=== PATIENT | female | born 1965 | race Asian ===

== ENCOUNTER 2021-06-01 08:51 | Emergency (ER) | payer SELFPAY ==
[~2021-06-01] VITALS: Ht 149.9 cm; Wt 56.5 kg
--- NOTE | 2021-06-01 09:10 | PHYS DOC ---
Adult General Chief Complaint Chief Complaint: CHEST PAIN [facility] HPI Patient is a 55 year old female who presents with chest pain. Patient complains of pain over the left pectoralis area. She has been having symptoms over the last 2 days. Pain started slowly. She did not have any accident, strenuous activity that would have led to her symptoms. Pain has been intermittent but worse with deep inspiration and worse with use of the left arm. No prior cardiac history. No shortness of breath, palpitations, lightheade dness. No fever, chills, cough. Eating and drinking normally. Review of Systems Review of Systems Constitutional: Denies fever or chills Eyes: Denies change in visual acuity, redness, or eye pain HENT: Denies nasal congestion or sore throat Respiratory: Denies cough or shortness of breath Cardiovascular: No additional information not addressed in HPI GI: Denies abdominal pain, nausea, vomiting, bloody stools or diarrhea : Denies dysuria or hematuria Musculoskeletal: Denies back pain or joint pain Integument: Denies rash or skin lesions Neurologic: Denies headache, focal weakness or sensory changes Endocrine: Denies polyuria or polydipsia All other systems were reviewed and found to be within normal limits, except as documented in this note. Current Medications Current Medications Current Medications Medications (Trade) Dose Ordered Sig/[facility] Start Time Stop Time Status Last Admin Dose Admin Ketorolac Tromethamine (Toradol 30mg Vial) 30 mg 1X ONCE 06/01/21 09:30 06/01/21 09:37 DC 06/01/21 09:45 30 MG Morphine Sulfate (Morphine Sulfate) 4 mg 1X ONCE 06/01/21 10:15 06/01/21 10:16 DC 06/01/21 10:46 4 MG Allergies Allergies Allergies Coded Allergies Type Severity Reaction Last Updated Verified No Known Drug Allergies 06/01/21 No Physical Exam Physical Exam Constitutional: Well developed, well nourished, no acute distress, non-toxic appearance. HENT: Normocephalic, atraumatic, bilateral external ears normal, oropharynx moist Eyes: PERRLA, EOMI, conjunctiva normal, no discharge. Neck: Normal range of motion, no tenderness Cardiovascular:Heart rate regular rhythm, no murmur Lungs & Thorax: Bilateral breath sounds clear to auscultation Abdomen: Bowel sounds normal, soft, no tenderness Skin: Warm, dry, no erythema, no rash. Back: Normal ROM Extremities: No tenderness, no edema Neurologic: Alert and oriented X 3, normal motor function Psychologic: Affect normal Current Patient Data Vital Signs Vital Signs Date Time Temp Pulse Resp B/P (MAP) Pulse Ox O2 Delivery O2 Flow Rate FiO2 06/01/21 10:46 16 100 Room Air 06/01/21 10:10 98.2 68 139/79 (99) 98.2 Lab Values Laboratory Tests Test 06/01/21 09:45 White Blood Count 9.0 x10^3/uL (4.0-11.0) Red Blood Count 5.57 x10^6/uL (3.50-5.40) H Hemoglobin 10.9 g/dL (12.0-15.5) L Hematocrit 35.6 % (36.0-47.0) L Mean Corpuscular Volume 64 fL (79-100) L Mean Corpuscular Hemoglobin 20 pg (25-35) L Mean Corpuscular Hemoglobin Concent 31 g/dL (31-37) Red Cell Distribution Width 15.9 % (11.5-14.5) H Platelet Count 221 x10^3/uL (140-400) Neutrophils (%) (Auto) 44 % (31-73) Lymphocytes (%) (Auto) 44 % (24-48) Monocytes (%) (Auto) 7 % (0-9) Eosinophils (%) (Auto) 4 % (0-3) H Basophils (%) (Auto) 1 % (0-3) Neutrophils # (Auto) 4.0 x10^3/uL (1.8-7.7) Lymphocytes # (Auto) 4.0 x10^3/uL (1.0-4.8) Monocytes # (Auto) 0.6 x10^3/uL (0.0-1.1) Eosinophils # (Auto) 0.4 x10^3/uL (0.0-0.7) Basophils # (Auto) 0.1 x10^3/uL (0.0-0.2) Platelet Estimate Pending D-Dimer (Leslie) < 0.27 ug/mlFEU Sodium Level 142 mmol/L (136-145) Potassium Level 4.3 mmol/L (3.5-5.1) Chloride Level 106 mmol/L (98-107) Carbon Dioxide Level 28 mmol/L (21-32) Anion Gap 8 (6-14) Blood Urea Nitrogen 22 mg/dL (7-20) H Creatinine 0.8 mg/dL (0.6-1.0) Estimated GFR (Cockcroft-Gault) 74.7 Glucose Level 173 mg/dL (70-99) H Calcium Level 8.6 mg/dL (8.5-10.1) Troponin I High Sensitivity 5 ng/L (4-50) [id number] Natriuretic Peptide 23 pg/mL (0-124) Laboratory Tests 06/01/21 09:45 Laboratory Tests 06/01/21 09:45 EKG EKG 09:10: Normal sinus rhythm. Heart rate 65 bpm. Normal intervals. No ST changes to suggest ischemia Radiology/Procedures Radiology/Procedures [] Course & Med Decision Making Course & Med Decision Making Pertinent Labs and Imaging studies reviewed. (See chart for details) Ms. Keys is examined on arrival to her room. CP over the last two days. Pain is worse with resisted activation of the left pectoralis muscle and with palpation in th esame area. No acute distress and she is otherwise normal appearing. Standard workup is ordered. EKG is normal. 11:15: All results are reviewed and discussed with the patient. All of her questions were answered. Her daughter is at the bedside who is acting as science interpreter during this visit. Today, no acute findings are present. Troponin is not elevated. She has been pain for over 2 days. D-dimer is normal. Chest x-ray normal. Her pain seems very musculoskeletal in nature. She was given Toradol in ER along with a small dose of morphine and her pain is improved at the time of discharge. Stable for discharge home and she is given ibuprofen to use as needed for pain control at home. I recommend she follow-up with her primary care doctor or come back to the ER for any new or severely worsening symptoms. Dragon Disclaimer Dragon Disclaimer This electronic medical record was generated, in whole or in part, using a voice recognition dictation system. Departure Departure Impression: Primary Impression: Other chest pain Disposition: HOME / SELF CARE / HOMELESS Condition: GOOD Referrals: INGRID GUERRERO MD (PCP) Patient Instructions: Chest Pain (Nonspecific) Scripts Ibuprofen (IBUPROFEN) 800 Mg Tablet 800 MG PO PRN TID PRN for PAIN, #20 TAB take with food or milk to avoid upsetting stomach Prov: NIGRID LORENZO DO 06/01/21 INGRID LORENZO DO Jun 01, 2021 09:10
[2021-06-01] MEDS ORDERED: KETOROLAC 30 MG/ML VIAL. IVP ONE (09:30)
--- NOTE | 2021-06-01 09:39 | RAD ---
EXAMINATION: Chest radiograph. VIEWS: Single AP view of the chest COMPARISON: None INDICATION:55 years, Female, chest pain. FINDINGS: Normal cardiomediastinal silhouette. No focal consolidation. No pleural effusion or pneumothorax. No acute osseous process. IMPRESSION: No acute cardiopulmonary process. Electronically signed by: Froy Moore DO (06/01/2021 9:36 AM) [facility]
[2021-06-01 10:09] LABS: BASO # 0.1 x10^3/uL (0.0-0.2); BASO % 1 % (0-3); EOS # 0.4 x10^3/uL (0.0-0.7); EOS % 4 % (0-3); HEMATOCRIT 35.6 % (36.0-47.0); HEMOGLOBIN 10.9 g/dL (12.0-15.5); LYMPH % 44 % (24-48); MEAN CORPUSCULAR HEMOGLOBIN 20 pg (25-35); MEAN CORPUSCULAR HGB CONC 31 g/dL (31-37); MEAN CORPUSCULAR VOLUME 64 fL (79-100); MONO # 0.6 x10^3/uL (0.0-1.1); MONO % 7 % (0-9); NEUT % 44 % (31-73); PLATELET COUNT 221 x10^3/uL (140-400); RED BLOOD COUNT 5.57 x10^6/uL (3.50-5.40); RED CELL DISTRIBUTION WIDTH 15.9 % (11.5-14.5)
[2021-06-01] MEDS ORDERED: MORPHINE SULFATE 4 MG/ML INJ. IV ONE (10:15)
[2021-06-01 10:20] LABS: CALCIUM 8.6 mg/dL (8.5-10.1); CREATININE 0.8 mg/dL (0.6-1.0); GFR 74.7; POTASSIUM 4.3 mmol/L (3.5-5.1)
[2021-06-01] MEDS ORDERED: IBUP-1060 PO (11:14)
[2021-06-01 11:27] VITALS: BP 148/71
[2021-06-01 12:32] LABS: ANISOCYTOSIS PRESENT; HYPOCHROMIA MARKED; MICROCYTOSIS MARKED; PLT ESTIMATE ADEQUATE (ADEQUATE)
--- NOTE | 2021-06-02 03:44 | EKG ---
[facility] [address] [place] [address] Test Date: 2021-06-01 Test Time: 09:09:36 Pat Name: ALKA LAURENT Department: Room: Gender: F Ict Customer Support Officer: : 1965 Requested By: INGRID LORENZO Order Number: [id number] Reading MD: Ronal Christianson Measurements Intervals E[place] Rate: 65 P: [place]: QRS: -15 QRSD: 82 T: 31 QT: 442 QTc: 465 Interpretive Statements SINUS RHYTHM Electronically Signed On 06-02-2021 19:29:36 LOOM CHECKER by Ronal Christianson
== END 2021-06-01 11:51 | disposition home or self-care (01) ==
LOC: ER 08:51
DX: R07.89 Other chest pain (principal); M79.602 Pain in left arm
CPT/HCPCS: 36415; 71045; 80048; 83880; 84484; 85025; 85379; 93005; 96374; 96375; 99285; J1885; J2270